=== PATIENT | male | born 1960 | race Two or more races ===

== ENCOUNTER 2017-12-07 22:22 | Emergency (ER) | payer MEDICAID ==
[~2017-12-07] VITALS: Ht 172.7 cm; Wt 127.0 kg
[~2017-12-07 22:22] MED LIST: ATEN1TAB38; LISI-206; [UNRECOGNIZED DRUG - OTHER]
[2017-12-07 23:17] LABS: Basophils # (auto) 0.1 uL; Eosinophils # (auto) 0.4 uL; Hematocrit 40.6 % (41.0-53.0); Hemoglobin 13.9 g/dL (13.5-17.5); Lymphocytes # (auto) 2.2 uL; Red Cell Distribution Width 14.1 % (11.8-14.3); White Blood Cell 8.7 10^3/uL (4.4-10.8)
[2017-12-07 23:20] LABS: Basophils % (auto) 0.6 % (0.0-2.0); Eosinophils % (auto) 4.3 % (0.0-7.0); Lymphocytes % (auto) 25.2 % (10.0-50.0); Mean Corpuscular Hemoglobin 31.6 pg (28.0-32.0); Mean Corpuscular Hgb Conc. 34.3 g/dL (32.0-36.0); Mean Corpuscular Volume 92.3 fL (80.0-100.0); Monocytes % (auto) 11.8 % (0.0-12.0); Neutrophils # (auto) 5.1 uL; Neutrophils % (auto) 58.1 % (37.0-80.0); Platelet Count (auto) 120 10^3/uL (140-450)
[2017-12-07 23:30] LABS: INR 0.92 (0.9-1.15); Partial Thromboplastin Time 28.9 sec (22.64-33.71)
[2017-12-07 23:33] LABS: Alanine Aminotransferase 46 U/L (16-61); Albumin 3.9 g/dL (3.4-5.0); Anion Gap 5 (5-15); Aspartate Aminotransferase 27 U/L (15-37); Blood Urea Nitrogen 20 mg/dL (7-18); Calcium 8.6 mg/dL (8.5-10.1); Carbon Dioxide 31 mmol/L (21-32); Chloride 103 mmol/L (98-107); GFR African American 94 mL/min; GFR Non-African American 77 mL/min; Glucose 101 mg/dL (74-106); Magnesium 1.9 mg/dL (1.6-2.6); Potassium 3.1 mmol/L (3.5-5.1); Sodium 139 mmol/L (136-145)
[2017-12-07 23:38] LABS: Alkaline Phosphatase 55 U/L (45-117); Bilirubin, Total 0.6 mg/dL (0.2-1.0)
[2017-12-08 03:59] VITALS: BP 129/84
== END 2017-12-08 04:11 | disposition left against medical advice (07) ==
LOC: ER 22:34
DX: I10 Essential (primary) hypertension (principal); Z53.21 Procedure and treatment not carried out due to patient leaving prior to being seen by health care provider
CPT/HCPCS: 36415; 70450; 71045; 80053; 83735; 84484; 85025; 85610; 85730; 93005

== ENCOUNTER 2018-02-24 16:52 | Inpatient (IN) | payer MEDICAID ==
[~2018-02-24] VITALS: Ht 170.2 cm; Wt 130.3 kg
[2018-02-24 18:21] LABS: Basophils # (auto) 0.1 uL; Basophils % (auto) 0.7 % (0.0-2.0); Eosinophils # (auto) 0.2 uL; Eosinophils % (auto) 2.6 % (0.0-7.0); Hematocrit 38.5 % (41.0-53.0); Hemoglobin 13.2 g/dL (13.5-17.5); Lymphocytes % (auto) 23.2 % (10.0-50.0); Mean Corpuscular Hemoglobin 31.7 pg (28.0-32.0); Mean Corpuscular Hgb Conc. 34.2 g/dL (32.0-36.0); Mean Corpuscular Volume 92.7 fL (80.0-100.0); Monocytes # (auto) 0.6 uL; Monocytes % (auto) 7.4 % (0.0-12.0); Neutrophils # (auto) 5.6 uL; Neutrophils % (auto) 66.1 % (37.0-80.0); Nucleated Red Blood Cells % 0.1 %; Platelet Count (auto) 109 10^3/uL (140-450); Red Blood Cells 4.15 10^6/uL (4.5-5.90); White Blood Cell 8.5 10^3/uL (4.4-10.8)
[2018-02-24 18:35] LABS: Alanine Aminotransferase 33 U/L (16-61); Albumin 3.7 g/dL (3.4-5.0); Anion Gap 10 (5-15); Aspartate Aminotransferase 21 U/L (15-37); BUN/Creatinine Ratio 15.7; Blood Urea Nitrogen 20 mg/dL (7-18); Calcium 8.8 mg/dL (8.5-10.1); Carbon Dioxide 26 mmol/L (21-32); Chloride 103 mmol/L (98-107); GFR African American 75 mL/min; GFR Non-African American 62 mL/min; Glucose 135 mg/dL (74-106); Potassium 3.3 mmol/L (3.5-5.1); Sodium 139 mmol/L (136-145)
[2018-02-24 18:44] LABS: Alkaline Phosphatase 42 U/L (45-117); Bilirubin, Total 0.5 mg/dL (0.2-1.0); Total Protein 7.6 g/dL (6.4-8.2)
[2018-02-24] MEDS ORDERED: PROMETHAZINE HCL 25 MG/ML 1ML IV PRN (19:30)
[2018-02-24] MEDS ORDERED: LORazepam 0.5 MG TAB PO PRN (19:30)
[2018-02-24] MEDS ORDERED: MORPHINE SULFATE 4 MG/ML SYR/VIAL IV PRN ×2 (19:30)
[2018-02-24] MEDS ORDERED: NITROGLYCERIN 0.4 MG SL TAB SL PRN (19:30)
[2018-02-24] MEDS ORDERED: DEXTROSE (50%) 50ML SYRG IV PRN (19:30)
[2018-02-24] MEDS ORDERED: LACTULOSE 20Gm/30ML SOLN PO PRN (19:30)
[2018-02-24] MEDS ORDERED: ENOXAPARIN SOD 40 MG/0.4 ML SYRINGE SC SCH (19:41)
[2018-02-24] MEDS ORDERED: ASPirin 81 mg TAB PO ONE (19:45)
[2018-02-24] MEDS ORDERED: amLODIPine BESYLATE 5 MG TAB PO ONE (19:45)
[2018-02-24] MEDS: SODIUM CHLORIDE 0.9% 1,000 ML IV SCH (19:55)
[2018-02-24] MEDS ORDERED: LORazepam 2MG/ML-1ML VIAL IV PRN (20:00)
[2018-02-24 20:51] LABS: Cholesterol 91 mg/dL (< 200); HDL Cholesterol 34 mg/dL (40-59); LDL Cholesterol 55 mg/dL (< 100); Triglycerides 149 mg/dL (< 150)
[2018-02-24 20:57] LABS: Folate (Folic Acid) 13.37 ng/mL (5.38-24)
[2018-02-24 22:30] VITALS: BP 133/72
[2018-02-24] MEDS: ATORVASTATIN 20 MG TAB PO SCH (22:56)
[2018-02-24] MEDS: LISINOPRIL 10 MG TAB PO SCH (22:57)
[2018-02-24] MEDS: METOPROLOL TARTRATE 25 MG TAB PO SCH (22:59)
[2018-02-24] MEDS: HYDROcodone-ACET 5/325MG TAB PO PRN (23:04)
[2018-02-24 23:46] LABS: Urine Bacteria NONE SEEN /hpf (None Seen); Urine Blood Negative /uL (Negative); Urine Mucus FEW (None Seen); Urine Specific Gravity 1.015 (1.001-1.035); Urine WBC 1 /hpf (0 - 3)
[2018-02-25] VITALS (7 sets, daily range): BP systolic 124–146; BP diastolic 85–97
[2018-02-25] LABS: Alcohol, Urine < 3.0 mg/dL (0-5); Amphetamine Screen, Urine NEGATIVE (NEGATIVE); Barbiturate Scree,Urine NEGATIVE (NEGATIVE); Benzodiazephine Screen, Urine NEGATIVE (NEGATIVE); Cannabinoid Screen, Urine NEGATIVE (NEGATIVE); Cocaine Screen, Urine NEGATIVE (NEGATIVE); Opiate Scree,Urine NEGATIVE (NEGATIVE); Phencyclidine Screen, Urine NEGATIVE (NEGATIVE)
[2018-02-25] MEDS: SODIUM CHLORIDE 0.9% 1,000 ML IV SCH (05:40)
[2018-02-25] MEDS: ACCU-CHEK COMFORT CURVE STRIP VI SCH ×4 (06:00→18:00)
[2018-02-25 06:31] LABS: Albumin 3.6 g/dL (3.4-5.0); Calcium 8.8 mg/dL (8.5-10.1); Potassium 3.4 mmol/L (3.5-5.1)
[2018-02-25 06:33] LABS: BUN/Creatinine Ratio 15.3
[2018-02-25 06:36] LABS: Total Protein 7.7 g/dL (6.4-8.2)
[2018-02-25] MEDS ORDERED: METF-370 PO (07:02)
[2018-02-25] MEDS ORDERED: SIMV-13 PO (07:02)
[2018-02-25] MEDS ORDERED: TAMS0.4C36 PO (07:02)
[2018-02-25] MEDS ORDERED: LISI-646 PO (07:02)
[2018-02-25] MEDS: METOPROLOL TARTRATE 25 MG TAB PO SCH ×2 (09:33→22:01)
[2018-02-25] MEDS ORDERED: NITROGLYCERIN 0.2MG/HR TOPICAL PATCH TD SCH (10:00)
[2018-02-25] MEDS: amLODIPine BESYLATE 5 MG TAB PO SCH (10:23)
[2018-02-25] MEDS: ASPirin 81 mg TAB PO SCH (10:23)
[2018-02-25] MEDS: ENOXAPARIN SOD 40 MG/0.4 ML SYRINGE SC SCH ×2 (10:24→21:54)
[2018-02-25] MEDS: LISINOPRIL 10 MG TAB PO SCH ×2 (10:25→21:59)
[2018-02-25] MEDS ORDERED: MORPHINE SULFATE 8mg/ml INJ SDV IV PRN (18:00)
[2018-02-25] MEDS: ATORVASTATIN 20 MG TAB PO SCH (21:51)
[2018-02-25] MEDS: TEMAZEPAM 15 MG CAP PO PRN (21:52)
[2018-02-26 05:06] VITALS: BP 143/96
[2018-02-26] MEDS: ACCU-CHEK COMFORT CURVE STRIP VI SCH ×4 (06:00→17:53)
[2018-02-26 09:00] VITALS: BP_SYST 116; BP_SYST 120; BP_DIAS 73; BP_DIAS 75
[2018-02-26] MEDS: ENOXAPARIN SOD 40 MG/0.4 ML SYRINGE SC SCH (10:00)
[2018-02-26] MEDS: METOPROLOL TARTRATE 25 MG TAB PO SCH ×2 (10:00→22:20)
[2018-02-26] MEDS: ASPirin 81 mg TAB PO SCH (10:00)
[2018-02-26] MEDS: LISINOPRIL 10 MG TAB PO SCH ×2 (10:01→22:19)
[2018-02-26] MEDS: amLODIPine BESYLATE 5 MG TAB PO SCH (10:02)
[2018-02-26] MEDS: SERTRALINE HCL 50 MG TAB PO SCH (12:04)
[2018-02-26 13:00] VITALS: BP 121/84
[2018-02-26 16:41] VITALS: BP 131/97
[2018-02-26] MEDS: HYDROcodone-ACET 5/325MG TAB PO PRN (16:49)
[2018-02-26] MEDS ORDERED: PANTOPRAZOLE 40 MG TAB PO ONE (17:45)
[2018-02-26] MEDS ORDERED: GASTROGRAFIN 120 ML SOL ONE (18:47)
[2018-02-26 22:00] VITALS: BP 144/95
[2018-02-26] MEDS: PANTOPRAZOLE 40 MG TAB PO SCH (22:17)
[2018-02-26] MEDS: ATORVASTATIN 20 MG TAB PO SCH (22:18)
[2018-02-26] MEDS: TEMAZEPAM 15 MG CAP PO PRN (22:27)
[2018-02-27 05:00] VITALS: BP 134/95
[2018-02-27] MEDS: ACCU-CHEK COMFORT CURVE STRIP VI SCH ×4 (06:07→16:47)
[2018-02-27 07:24] LABS: Basophils # (auto) 0.1 uL; Basophils % (auto) 0.6 % (0.0-2.0); Eosinophils # (auto) 0.2 uL; Eosinophils % (auto) 2.5 % (0.0-7.0); Hemoglobin 14.1 g/dL (13.5-17.5); Lymphocytes # (auto) 1.8 uL; Lymphocytes % (auto) 19.4 % (10.0-50.0); Mean Corpuscular Hemoglobin 31.6 pg (28.0-32.0); Mean Corpuscular Hgb Conc. 34.5 g/dL (32.0-36.0); Mean Corpuscular Volume 91.8 fL (80.0-100.0); Monocytes % (auto) 10.2 % (0.0-12.0); Neutrophils # (auto) 6.3 uL; Neutrophils % (auto) 67.3 % (37.0-80.0); Platelet Count (auto) 112 10^3/uL (140-450); Red Blood Cells 4.47 10^6/uL (4.5-5.90); Red Cell Distribution Width 14.3 % (11.8-14.3); White Blood Cell 9.3 10^3/uL (4.4-10.8)
[2018-02-27 07:40] LABS: Potassium 3.1 mmol/L (3.5-5.1)
[2018-02-27 09:00] VITALS: BP 129/81
[2018-02-27] MEDS: PANTOPRAZOLE 40 MG TAB PO SCH ×2 (09:20→22:45)
[2018-02-27] MEDS: ASPirin 81 mg TAB PO SCH (09:20)
[2018-02-27] MEDS: amLODIPine BESYLATE 5 MG TAB PO SCH (09:21)
[2018-02-27] MEDS: SERTRALINE HCL 50 MG TAB PO SCH (09:21)
[2018-02-27] MEDS: METOPROLOL TARTRATE 25 MG TAB PO SCH ×2 (09:22→22:44)
[2018-02-27] MEDS: LISINOPRIL 10 MG TAB PO SCH ×2 (09:23→22:45)
[2018-02-27 13:00] VITALS: BP 123/90
[2018-02-27 16:45] VITALS: BP 140/86
[2018-02-27] MEDS: ATORVASTATIN 20 MG TAB PO SCH (22:44)
[2018-02-27 22:51] VITALS: BP 147/93
[2018-02-27] MEDS: ACETAMINOPHEN 500 MG TAB PO PRN (22:58)
[2018-02-28 05:26] VITALS: BP 130/91
[2018-02-28] MEDS: ACCU-CHEK COMFORT CURVE STRIP VI SCH ×5 (06:10→23:43)
[2018-02-28 08:02] VITALS: BP 137/92
[2018-02-28] MEDS: LISINOPRIL 10 MG TAB PO SCH ×2 (08:55→22:26)
[2018-02-28] MEDS: SERTRALINE HCL 50 MG TAB PO SCH (08:55)
[2018-02-28] MEDS: PANTOPRAZOLE 40 MG TAB PO SCH ×2 (08:55→22:26)
[2018-02-28] MEDS: amLODIPine BESYLATE 5 MG TAB PO SCH (08:56)
[2018-02-28] MEDS: METOPROLOL TARTRATE 25 MG TAB PO SCH ×2 (08:56→22:00)
[2018-02-28] MEDS: ASPirin 81 mg TAB PO SCH (08:56)
[2018-02-28 11:59] VITALS: BP 125/81
[2018-02-28] MEDS: ACETAMINOPHEN 500 MG TAB PO PRN (13:27)
[2018-02-28] MEDS: HYDROcodone-ACET 5/325MG TAB PO PRN ×2 (15:46→20:32)
[2018-02-28 16:06] VITALS: BP 138/98
[2018-02-28 20:37] VITALS: BP 138/98
[2018-02-28 22:00] VITALS: BP 130/89
[2018-02-28] MEDS: ATORVASTATIN 20 MG TAB PO SCH (22:26)
[2018-03-01] MEDS: ACCU-CHEK COMFORT CURVE STRIP VI SCH ×2 (05:44→21:47)
[2018-03-01 05:46] VITALS: BP 130/94
[2018-03-01 08:21] VITALS: BP 150/107
[2018-03-01] MEDS: PANTOPRAZOLE 40 MG TAB PO SCH (09:18)
[2018-03-01] MEDS: ASPirin 81 mg TAB PO SCH (09:18)
[2018-03-01] MEDS: SERTRALINE HCL 50 MG TAB PO SCH (09:18)
[2018-03-01] MEDS: amLODIPine BESYLATE 5 MG TAB PO SCH (09:19)
[2018-03-01] MEDS: LISINOPRIL 10 MG TAB PO SCH ×2 (09:19→21:47)
[2018-03-01] MEDS: METOPROLOL TARTRATE 25 MG TAB PO SCH ×2 (09:20→21:46)
[2018-03-01 09:47] LABS: BUN/Creatinine Ratio 14.3; Calcium 8.7 mg/dL (8.5-10.1)
[2018-03-01 09:56] LABS: Potassium 2.9 mmol/L (3.5-5.1)
[2018-03-01] MEDS ORDERED: POTASSIUM CHL 20 Meq TABLET PO ONE (10:00)
[2018-03-01] MEDS ORDERED: InsuLIN REG 1unit/0.01ml Soln (100units/ml) SC SCH (10:15)
[2018-03-01] MEDS ORDERED: amLODIPine BESYLATE 5 MG TAB PO ONE (11:45)
[2018-03-01 12:30] VITALS: BP 135/102
[2018-03-01] MEDS ORDERED: hydrALAZINE HCL 20 MG/ML VL IV PRN (14:30)
[2018-03-01] MEDS ORDERED: IOHEXOL 350 MG/ML 100ML IJ ONE (15:50)
[2018-03-01 16:18] VITALS: BP 142/92
[2018-03-01] MEDS: ATORVASTATIN 20 MG TAB PO SCH (21:46)
[2018-03-01] MEDS: InsuLIN REG 1unit/0.01ml Soln (100units/ml) SC SCH (21:48)
[2018-03-01] MEDS: HYDROcodone-ACET 5/325MG TAB PO PRN (21:52)
[2018-03-01 22:00] VITALS: BP 123/88
[2018-03-02 05:52] VITALS: BP 139/56
[2018-03-02 07:01] LABS: Potassium 3.1 mmol/L (3.5-5.1)
[2018-03-02 07:16] LABS: BUN/Creatinine Ratio 18.9; Calcium 8.7 mg/dL (8.5-10.1)
[2018-03-02 09:00] VITALS: BP 139/92
[2018-03-02] MEDS ORDERED: POTASSIUM CHL 20 Meq TABLET PO ONE (09:45)
[2018-03-02] MEDS: InsuLIN REG 1unit/0.01ml Soln (100units/ml) SC SCH (10:00)
[2018-03-02] MEDS ORDERED: PANTOPRAZOLE 40 MG TAB PO SCH (10:00)
[2018-03-02] MEDS ORDERED: amLODIPine BESYLATE 5 MG TAB PO SCH (10:00)
[2018-03-02] MEDS: ASPirin 81 mg TAB PO SCH (10:31)
[2018-03-02] MEDS: METOPROLOL TARTRATE 25 MG TAB PO SCH (10:32)
[2018-03-02] MEDS: SERTRALINE HCL 50 MG TAB PO SCH (10:33)
[2018-03-02] MEDS: LISINOPRIL 10 MG TAB PO SCH (10:33)
[2018-03-02] MEDS: ACCU-CHEK COMFORT CURVE STRIP VI SCH (10:34)
[2018-03-02] MEDS ORDERED: AML5T PO (11:37)
[2018-03-02] MEDS ORDERED: MET25T PO (11:37)
[2018-03-02] MEDS ORDERED: ASPI81CH43 PO (11:37)
[2018-03-02] MEDS ORDERED: PANT40T PO (11:37)
[2018-03-02 13:00] VITALS: BP 137/92
[2018-03-02] MEDS ORDERED: STERILE WATER 10 ML ONE (18:23)
== END 2018-03-02 14:50 | disposition home or self-care (01) | DRG 243 ==
LOC: ER 16:52 → WEST WING 16:53 → TELE-WESTW 22:51 → WEST WING 02-26 20:19
PROVIDERS: ADMIT Internal Medicine; ATTEND Internal Medicine
DX: K21.9 Gastro-esophageal reflux disease without esophagitis (principal); E11.51 Type 2 diabetes mellitus with diabetic peripheral angiopathy without gangrene; I11.9 Hypertensive heart disease without heart failure; I10 Essential (primary) hypertension; K29.70 Gastritis, unspecified, without bleeding; E66.01 Morbid (severe) obesity due to excess calories; I70.0 Atherosclerosis of aorta; I71.4 Abdominal aortic aneurysm, without rupture; E03.9 Hypothyroidism, unspecified; F41.9 Anxiety disorder, unspecified; E78.5 Hyperlipidemia, unspecified; I71.2 Thoracic aortic aneurysm, without rupture; K40.90 Unilateral inguinal hernia, without obstruction or gangrene, not specified as recurrent; K42.9 Umbilical hernia without obstruction or gangrene; K44.9 Diaphragmatic hernia without obstruction or gangrene; Z79.82 Long term (current) use of aspirin; Z79.899 Other long term (current) drug therapy; Z82.49 Family history of ischemic heart disease and other diseases of the circulatory system; Z83.3 Family history of diabetes mellitus; Z68.42 Body mass index [BMI] 45.0-49.9, adult
CPT/HCPCS: 36415; 70450; 70551; 71046; 71275; 74176; 76705; 80048; 80053; 80061; 80307; 81001; 82150; 82550; 82607; 82746; 82962; 83036; 83690; 83880; 84132; 84443; 84484; 85025; 85379; 85652; 86141; 93005; 93306; 93886

== ENCOUNTER → 2018-03-24 | Outpatient (CLI) | payer MEDICAID ==
[~2018-03-24] VITALS: Ht 188 cm; Wt 78.5 kg
[~2018-03-24] MED LIST changes: +ADENOSINE 66 MG in GIVE UN-DILUTED 0 ML IV ONE; +ADENOSINE 90 MG/30 ML INJ IV ONE; +AML5T PO; +ASPI81CH43 PO; -ATEN1TAB38; -LISI-206; +LISI-646 PO; +MET25T PO; +METF-370 PO; +PANT40T PO; +SIMV-13 PO; +TAMS0.4C36 PO; -[UNRECOGNIZED DRUG - OTHER]
== END | disposition home or self-care (01) ==
LOC: Rad HDHVI 10:40
PROVIDERS: ATTEND Internal Medicine Cardiovascular Disease
DX: I10 Essential (primary) hypertension (principal); E11.9 Type 2 diabetes mellitus without complications; E78.5 Hyperlipidemia, unspecified; R63.8 Other symptoms and signs concerning food and fluid intake; I71.4 Abdominal aortic aneurysm, without rupture; I71.2 Thoracic aortic aneurysm, without rupture
CPT/HCPCS: 78452; 93005; 96374; 96375; A9500; J0153

== ENCOUNTER 2018-05-11 16:37 | Inpatient (IN) | payer MEDICAID ==
[~2018-05-11] VITALS: Ht 175.3 cm; Wt 120.0 kg
[~2018-05-11 16:37] MED LIST changes: -ADENOSINE 66 MG in GIVE UN-DILUTED 0 ML IV ONE; -ADENOSINE 90 MG/30 ML INJ IV ONE
[2018-05-11 17:17] LABS: Basophils # (auto) 0.1 uL; Basophils % (auto) 0.6 % (0.0-2.0); Eosinophils # (auto) 0.3 uL; Eosinophils % (auto) 2.6 % (0.0-7.0); Hemoglobin 13.1 g/dL (13.5-17.5); Lymphocytes # (auto) 2.1 uL; Lymphocytes % (auto) 21.6 % (10.0-50.0); Mean Corpuscular Hemoglobin 31.9 pg (28.0-32.0); Mean Corpuscular Hgb Conc. 34.5 g/dL (32.0-36.0); Mean Corpuscular Volume 92.4 fL (80.0-100.0); Monocytes # (auto) 0.8 uL; Monocytes % (auto) 8.6 % (0.0-12.0); Neutrophils # (auto) 6.4 uL; Neutrophils % (auto) 66.6 % (37.0-80.0); Platelet Count (auto) 121 10^3/uL (140-450); Red Blood Cells 4.11 10^6/uL (4.5-5.90); Red Cell Distribution Width 13.7 % (11.8-14.3); White Blood Cell 9.6 10^3/uL (4.4-10.8)
[2018-05-11 17:35] LABS: Alanine Aminotransferase 39 U/L (16-61); Albumin 3.9 g/dL (3.4-5.0); Alkaline Phosphatase 62 U/L (45-117); Anion Gap 9 (5-15); Aspartate Aminotransferase 17 U/L (15-37); BUN/Creatinine Ratio 19.1; Bilirubin, Total 0.8 mg/dL (0.2-1.0); Blood Urea Nitrogen 27 mg/dL (7-18); Calcium 8.8 mg/dL (8.5-10.1); Carbon Dioxide 27 mmol/L (21-32); Chloride 104 mmol/L (98-107); GFR African American 66 mL/min; GFR Non-African American 55 mL/min; Glucose 95 mg/dL (74-106); Potassium 3.4 mmol/L (3.5-5.1); Sodium 140 mmol/L (136-145)
[2018-05-11] MEDS ORDERED: ACETAMINOPHEN 325 MG TAB PO ONE (21:30)
[2018-05-11] MEDS ORDERED: ASPirin 81 mg TAB PO ONE (21:30)
[2018-05-11] MEDS ORDERED: TEMAZEPAM 15 MG CAP PO PRN (22:45)
[2018-05-11] MEDS ORDERED: ONDANSETRON HCL 4 MG/2 ML VIAL IV PRN (22:45)
[2018-05-11] MEDS ORDERED: ACETAMINOPHEN 325 MG TAB PO PRN (22:45)
[2018-05-11] MEDS: NITROGLYCERIN 0.4 MG SL TAB SL PRN (23:33)
[2018-05-12] MEDS: MORPHINE SULFATE 4 MG/ML SYR/VIAL IV PRN (00:17)
[2018-05-12 01:24] LABS: Albumin 3.5 g/dL (3.4-5.0); BUN/Creatinine Ratio 25.7; Calcium 8.1 mg/dL (8.5-10.1); Potassium 3.3 mmol/L (3.5-5.1)
[2018-05-12 01:29] LABS: Bilirubin, Total 0.7 mg/dL (0.2-1.0); Total Protein 7.1 g/dL (6.4-8.2)
[2018-05-12] MEDS ORDERED: POTASSIUM CHL 20 Meq TABLET PO ONE ×2 (06:15→11:45)
[2018-05-12] MEDS: PANTOPRAZOLE 40 MG TAB PO SCH (06:22)
[2018-05-12 07:37] LABS: Basophils # (auto) 0 uL; Basophils % (auto) 0.5 % (0.0-2.0); Eosinophils # (auto) 0.3 uL; Eosinophils % (auto) 3.3 % (0.0-7.0); Hematocrit 37.1 % (41.0-53.0); Hemoglobin 12.6 g/dL (13.5-17.5); Lymphocytes # (auto) 2.3 uL; Lymphocytes % (auto) 25.3 % (10.0-50.0); Mean Corpuscular Hgb Conc. 33.9 g/dL (32.0-36.0); Mean Corpuscular Volume 91.5 fL (80.0-100.0); Monocytes # (auto) 0.9 uL; Monocytes % (auto) 9.8 % (0.0-12.0); Neutrophils # (auto) 5.5 uL; Neutrophils % (auto) 61.1 % (37.0-80.0); Nucleated Red Blood Cells % 0.1 %; Platelet Count (auto) 111 10^3/uL (140-450); Red Blood Cells 4.06 10^6/uL (4.5-5.90); Red Cell Distribution Width 13.6 % (11.8-14.3)
[2018-05-12 07:39] VITALS: BP 132/81
[2018-05-12] MEDS ORDERED: PNEUMOCOCCAL VACC POLYS 25 MCG/0.5 ML VIAL IM ONE (08:45)
[2018-05-12] MEDS ORDERED: LEVO25TA6 PO (08:47)
[2018-05-12] MEDS ORDERED: ATOR80TA PO (08:47)
[2018-05-12 09:00] VITALS: BP 132/81
[2018-05-12] MEDS: LISINOPRIL 20 MG TAB PO SCH (10:00)
[2018-05-12] MEDS ORDERED: METOPROLOL TARTRATE 25 MG TAB PO SCH (10:00)
[2018-05-12] MEDS: ASPirin 81 mg TAB PO SCH (10:00)
[2018-05-12] MEDS: amLODIPine BESYLATE 5 MG TAB PO SCH (10:00)
[2018-05-12] MEDS ORDERED: KETOROLAC TROMETH 30 MG/ML 1ML VIAL IV ONE (11:30)
[2018-05-12 13:00] VITALS: BP 110/78
[2018-05-12 17:00] VITALS: BP 128/87
[2018-05-12] MEDS: NITROGLYCERIN 0.4 MG SL TAB SL PRN (19:33)
[2018-05-12 21:56] VITALS: BP 123/79
[2018-05-12] MEDS ORDERED: ATORVASTATIN 20 MG TAB PO SCH (22:00)
[2018-05-12 22:01] LABS: Urine Bacteria NONE SEEN /hpf (None Seen); Urine Blood Negative /uL (Negative); Urine WBC <1 /hpf (0 - 3)
[2018-05-12 22:40] LABS: INR 1.02 (0.9-1.15); Partial Thromboplastin Time 29.9 sec (23.78-33.04); Prothrombin Time 10.9 sec (9.27-12.13)
[2018-05-13 05:00] VITALS: BP 135/92
[2018-05-13] MEDS: PANTOPRAZOLE 40 MG TAB PO SCH (05:45)
[2018-05-13] MEDS ORDERED: LIDOCAINE 2%HCL (LOCAL ANESTH.) INJ 10ml MDV ONE (07:20)
[2018-05-13] MEDS ORDERED: IODIXANOL 320MG/ML 100ML BTL IV ONE (07:21)
[2018-05-13 08:00] VITALS: BP 135/88
[2018-05-13] MEDS ORDERED: SODIUM CHL 0.9% 0 ML ONE (08:56)
[2018-05-13] MEDS ORDERED: fentaNYL CITRATE 100 MCG/2 ML VL ONE (08:56)
[2018-05-13] MEDS ORDERED: MIDAZOLAM HCL 1MG/1ML-2 ML VIAL ONE (08:56)
[2018-05-13] MEDS ORDERED: ANGIOMAX 250 MG VIAL IV ONE (08:56)
[2018-05-13] MEDS: ASPirin 81 mg TAB PO SCH (10:59)
[2018-05-13] MEDS: amLODIPine BESYLATE 5 MG TAB PO SCH (11:00)
[2018-05-13] MEDS: LISINOPRIL 20 MG TAB PO SCH (11:01)
[2018-05-13] MEDS: MORPHINE SULFATE 4 MG/ML SYR/VIAL IV PRN (11:02)
[2018-05-13 12:00] VITALS: BP 118/87
[2018-05-13 17:00] VITALS: BP 120/78
[2018-05-13 19:15] VITALS: BP 107/65
== END 2018-05-13 19:50 | disposition home or self-care (01) | DRG 192 ==
LOC: ER 16:37 → TELE 16:38 → TELE-CENTR 05-12 08:17
PROVIDERS: ADMIT Nurse Practitioner; ATTEND Internal Medicine
PROC: 4A023N7 Measurement of Cardiac Sampling and Pressure, Left Heart, Percutaneous Approach (ICD-10-PCS; principal; 2018-05-13)
PROC: B2111ZZ Fluoroscopy of Multiple Coronary Arteries using Low Osmolar Contrast (ICD-10-PCS; 2018-05-13)
PROC: B2151ZZ Fluoroscopy of Left Heart using Low Osmolar Contrast (ICD-10-PCS; 2018-05-13)
PROC: B310ZZZ Fluoroscopy of Thoracic Aorta (ICD-10-PCS; 2018-05-13)
DX: R07.9 Chest pain, unspecified (principal); E11.22 Type 2 diabetes mellitus with diabetic chronic kidney disease; D69.6 Thrombocytopenia, unspecified; I71.2 Thoracic aortic aneurysm, without rupture; E66.01 Morbid (severe) obesity due to excess calories; N18.3 Chronic kidney disease, stage 3 (moderate); I25.10 Atherosclerotic heart disease of native coronary artery without angina pectoris; I12.9 Hypertensive chronic kidney disease with stage 1 through stage 4 chronic kidney disease, or unspecified chronic kidney disease; D64.9 Anemia, unspecified; E03.9 Hypothyroidism, unspecified; E78.5 Hyperlipidemia, unspecified; K21.9 Gastro-esophageal reflux disease without esophagitis; N40.0 Benign prostatic hyperplasia without lower urinary tract symptoms; Z23 Encounter for immunization; Z79.82 Long term (current) use of aspirin; Z79.899 Other long term (current) drug therapy; Z68.39 Body mass index [BMI] 39.0-39.9, adult
CPT/HCPCS: 36415; 70450; 71045; 80053; 81001; 82962; 84484; 85025; 85610; 85730; 93005; 93458; 96374; 99152; A6257; J1885; J2001; J2250; Q9967

== ENCOUNTER → 2018-12-30 | Outpatient (CLI) | payer MEDICAID ==
[~2018-12-30] MED LIST changes: +ATOR80TA PO; +IOHEXOL 350 MG/ML 100ML IJ ONE; +LEVO25TA6 PO; -SIMV-13 PO
[2018-12-30 09:30] VITALS: BP 141/88
[2018-12-30 11:00] VITALS: BP 140/97
--- NOTE | 2018-12-30 11:00 | NUR ---
[facility] Discharge Instructions See e-MAR for any mediations given with this visit. Patient education given on disease process. Patient verbalized understanding. Previous labs reviewed. Patient discharged in stable condition with after care instructions and follow up appointment. NOTE PATIENT EDUCATION ON HOLDING METFORMIN AFTER IV CONTRAST GIVEN TO PATIENT, PATIENT VERBALIZED UNDERSTANDING
== END | disposition home or self-care (01) ==
LOC: Rad HDHVI 09:20
PROVIDERS: ATTEND Internal Medicine
DX: K42.9 Umbilical hernia without obstruction or gangrene (principal); R94.4 Abnormal results of kidney function studies; N28.1 Cyst of kidney, acquired; K57.30 Diverticulosis of large intestine without perforation or abscess without bleeding; J98.11 Atelectasis; I70.0 Atherosclerosis of aorta
CPT/HCPCS: 36415; 71275; 82565; G0463; Q9967

== ENCOUNTER 2019-04-21 14:42 | Emergency (ER) | payer MEDICAID ==
[~2019-04-21] VITALS: Ht 172.7 cm; Wt 120.2 kg
[~2019-04-21 14:42] MED LIST changes: -IOHEXOL 350 MG/ML 100ML IJ ONE
[2019-04-21 15:51] LABS: Albumin 3.6 g/dL (3.4-5.0); Calcium 9.3 mg/dL (8.5-10.1); Potassium 3.3 mmol/L (3.5-5.1)
[2019-04-21 15:53] LABS: Bilirubin, Total 1.5 mg/dL (0.2-1.0); Total Protein 7.9 g/dL (6.4-8.2)
[2019-04-21 16:02] LABS: BUN/Creatinine Ratio 14.8
[2019-04-21 16:12] LABS: Basophils # (auto) 0 uL; Basophils % (auto) 0.5 % (0.0-2.0); Eosinophils # (auto) 0.1 uL; Eosinophils % (auto) 0.5 % (0.0-7.0); Hematocrit 39.5 % (41.0-53.0); Hemoglobin 13.4 g/dL (13.5-17.5); Lymphocytes # (auto) 1.2 uL; Mean Corpuscular Hemoglobin 31.6 pg (28.0-32.0); Mean Corpuscular Hgb Conc. 33.8 g/dL (32.0-36.0); Mean Corpuscular Volume 93.3 fL (80.0-100.0); Monocytes # (auto) 1.1 uL; Monocytes % (auto) 10.9 % (0.0-12.0); Neutrophils # (auto) 7.8 uL; Neutrophils % (auto) 76.1 % (37.0-80.0); Platelet Count (auto) 115 10^3/uL (140-450); Red Blood Cells 4.23 10^6/uL (4.5-5.90); Red Cell Distribution Width 14.5 % (11.8-14.3); White Blood Cell 10.2 10^3/uL (4.4-10.8)
[2019-04-21 16:31] LABS: Urine Bacteria FEW /hpf (None Seen); Urine Blood 2+ /uL (Negative); Urine Hyaline Cast FEW /lpf (0 - 2); Urine Mucus FEW (None Seen); Urine Specific Gravity 1.028 (1.001-1.035); Urine WBC 216 /hpf (0 - 3)
[2019-04-21 17:31] VITALS: BP 128/89
== END 2019-04-21 17:31 | disposition home or self-care (01) ==
LOC: ER 14:51
DX: N39.0 Urinary tract infection, site not specified (principal); N43.3 Hydrocele, unspecified; I25.10 Atherosclerotic heart disease of native coronary artery without angina pectoris; E11.9 Type 2 diabetes mellitus without complications; K21.9 Gastro-esophageal reflux disease without esophagitis; E78.00 Pure hypercholesterolemia, unspecified; I10 Essential (primary) hypertension; Z79.82 Long term (current) use of aspirin; Z79.899 Other long term (current) drug therapy
CPT/HCPCS: 36415; 76870; 80053; 81001; 85025

== ENCOUNTER → 2021-02-11 | Outpatient (CLI) | payer MEDICAID ==
[~2021-02-11] MED LIST changes: -LISI-646 PO; +LISI20TA28 PO
== END | disposition home or self-care (01) ==
LOC: LAB 10:26
PROVIDERS: ATTEND Internal Medicine
DX: R94.4 Abnormal results of kidney function studies (principal)
CPT/HCPCS: 36415; 82565; 84520

== ENCOUNTER → 2021-02-12 | Outpatient (CLI) | payer MEDICAID ==
[~2021-02-12] MED LIST changes: +IOHEXOL 350 MG/ML 100ML IJ ONE
[2021-02-12 10:30] VITALS: BP 107/76
[2021-02-12 10:50] VITALS: BP 108/81
== END | disposition home or self-care (01) ==
LOC: Rad HDHVI 10:11
PROVIDERS: ATTEND Internal Medicine
DX: I77.810 Thoracic aortic ectasia (principal); I70.0 Atherosclerosis of aorta; I25.10 Atherosclerotic heart disease of native coronary artery without angina pectoris; K57.30 Diverticulosis of large intestine without perforation or abscess without bleeding; K42.9 Umbilical hernia without obstruction or gangrene; N28.1 Cyst of kidney, acquired; M46.00 Spinal enthesopathy, site unspecified
CPT/HCPCS: 71260; 74177; G0463; Q9967

== ENCOUNTER → 2021-02-14 | Outpatient (CLI) | payer MEDICAID ==
[~2021-02-14] MED LIST changes: -IOHEXOL 350 MG/ML 100ML IJ ONE
== END | disposition home or self-care (01) ==
LOC: Rad HDHVI 09:27
PROVIDERS: ATTEND Internal Medicine
DX: I11.9 Hypertensive heart disease without heart failure (principal); R07.89 Other chest pain
CPT/HCPCS: 93306

== ENCOUNTER 2022-05-10 15:46 | Emergency (ER) | payer MEDICAID ==
[~2022-05-10] VITALS: Ht 172.7 cm; Wt 265.0 kg
[2022-05-10 15:55] VITALS: BP 143/99
[2022-05-10] MEDS ORDERED: CYCL-837 PO (16:58)
[2022-05-10] MEDS ORDERED: ACE3T PO (16:58)
[2022-05-10] MEDS ORDERED: KETOROLAC TROMETH 60MG/2ML VIAL IM ONE (17:00)
== END 2022-05-10 17:27 | disposition home or self-care (01) ==
LOC: ER 15:46
DX: M54.32 Sciatica, left side (principal); I10 Essential (primary) hypertension; I25.10 Atherosclerotic heart disease of native coronary artery without angina pectoris; E11.9 Type 2 diabetes mellitus without complications; E78.5 Hyperlipidemia, unspecified; E03.9 Hypothyroidism, unspecified; K21.9 Gastro-esophageal reflux disease without esophagitis; Z79.82 Long term (current) use of aspirin; Z79.899 Other long term (current) drug therapy
CPT/HCPCS: 72100; 96372; 99283; J1885

== ENCOUNTER 2022-05-28 20:12 | Emergency (ER) | payer MEDICAID ==
[~2022-05-28] VITALS: Ht 170.2 cm; Wt 110.0 kg
[~2022-05-28 20:12] MED LIST changes: +ACE3T PO; +CYCL-837 PO
[2022-05-28] MEDS ORDERED: ASPirin 81 mg TAB PO ONE (20:45)
[2022-05-28 21:05] LABS: Basophils # (auto) 0.1 10 ^3/uL (0-0.2); Basophils % (auto) 0.8 % (0.0-2.0); Eosinophils # (auto) 0.1 10 ^3/uL (0-0.8); Eosinophils % (auto) 1.3 % (0.0-7.0); Hematocrit 43.1 % (41.0-53.0); Hemoglobin 14.1 g/dL (13.5-17.5); Lymphocytes # (auto) 1.9 10 ^3/uL (0.4-5.4); Lymphocytes % (auto) 21.3 % (10.0-50.0); Mean Corpuscular Hemoglobin 30.1 pg (28.0-32.0); Mean Corpuscular Hgb Conc. 32.8 g/dL (32.0-36.0); Monocytes # (auto) 0.8 10 ^3/uL (0-1.3); Monocytes % (auto) 8.9 % (0.0-12.0); Neutrophils # (auto) 6.1 10 ^3/uL (1.6-8.6); Neutrophils % (auto) 67.7 % (37.0-80.0); Red Blood Cells 4.68 10^6/uL (4.5-5.90); Red Cell Distribution Width 14.9 % (11.8-14.3)
[2022-05-28 21:16] LABS: Urine Bacteria NONE SEEN /hpf (None Seen); Urine Blood Negative /uL (Negative); Urine Specific Gravity 1.006 (1.001-1.035); Urine WBC 8 /hpf (0 - 3)
[2022-05-28 21:20] LABS: INR 0.98 (0.9-1.15)
[2022-05-28 21:42] LABS: Albumin 3.6 g/dL (3.4-5.0); Calcium 9.5 mg/dL (8.5-10.1); Magnesium 2.3 mg/dL (1.6-2.6); Potassium 3.1 mmol/L (3.5-5.1)
[2022-05-28 21:46] LABS: BUN/Creatinine Ratio 15.1; Bilirubin, Total 0.9 mg/dL (0.2-1.0); Total Protein 7.6 g/dL (6.4-8.2)
[2022-05-28] MEDS ORDERED: cefTRIAXone 1GM/50ML D5W 50 ML IV ONE (22:00)
[2022-05-29] MEDS ORDERED: DOCUSATE SOD 100 MG CAP PO ONE (09:15)
[2022-05-29 09:30] VITALS: BP 132/76
[2022-05-29] MEDS ORDERED: NITR-87 PO (11:01)
== END 2022-05-29 11:19 | disposition admitted as inpatient to this hospital (09) ==
LOC: ER 20:12
DX: I24.9 Acute ischemic heart disease, unspecified (principal); I10 Essential (primary) hypertension; I25.10 Atherosclerotic heart disease of native coronary artery without angina pectoris; K21.9 Gastro-esophageal reflux disease without esophagitis; E11.9 Type 2 diabetes mellitus without complications; E78.5 Hyperlipidemia, unspecified; E03.9 Hypothyroidism, unspecified; Z79.899 Other long term (current) drug therapy; Z79.82 Long term (current) use of aspirin
CPT/HCPCS: 36415; 70450; 71046; 80053; 81001; 83735; 84484; 85025; 85610; 85730; 93005; 96365; 99285; J0696

== ENCOUNTER → 2023-11-02 | Outpatient (CLI) | payer MEDICAID ==
[~2023-11-02] VITALS: Ht 170.2 cm; Wt 124.7 kg
[~2023-11-02] MED LIST changes: +ADENOSINE 105 MG in GIVE UN-DILUTED 0 ML IV ONE; +ADENOSINE 90 MG/30 ML INJ IV ONE; -LISI20TA28 PO; +LISI20TA56 PO; +NITR-87 PO
== END | disposition home or self-care (01) ==
LOC: Rad HDHVI 13:53
PROVIDERS: ATTEND Internal Medicine Cardiovascular Disease
DX: R07.9 Chest pain, unspecified (principal); I10 Essential (primary) hypertension; E11.9 Type 2 diabetes mellitus without complications; E78.00 Pure hypercholesterolemia, unspecified
CPT/HCPCS: 78452; 93005; 96374; 96375; A9500; J0153

== ENCOUNTER → 2023-11-05 | Outpatient (CLI) | payer MEDICARE, MEDICAID ==
[~2023-11-05] MED LIST changes: -ADENOSINE 105 MG in GIVE UN-DILUTED 0 ML IV ONE; -ADENOSINE 90 MG/30 ML INJ IV ONE
== END | disposition home or self-care (01) ==
LOC: Rad HDHVI 13:53
PROVIDERS: ATTEND Internal Medicine Cardiovascular Disease
DX: I11.9 Hypertensive heart disease without heart failure (principal); R07.89 Other chest pain
CPT/HCPCS: 93306